=== PATIENT | female | born 1995 | race African-American/Black ===

== ENCOUNTER 2025-04-21 19:42 | Emergency (ER) | payer OTHER, SELFPAY ==
[2025-04-21 19:50] VITALS: BP 148/76; PULSE 119; RESP 18; TEMP 36.7; O2SAT 100
--- NOTE | 2025-04-21 23:10 | ED.PREGNANCY ---
HPI - General Chief complaint: Vaginal Bleeding Stated complaint: 5-6 weeks preg, vag bleeding Time Seen by Provider: 04/21/25 21:54 Source: patient Mode of arrival: ambulatory Limitations: no limitations History of Present Illness HPI Narrative: This is a 29 year old female that presents to the ER for vaginal bleeding in . Reports she is about 5 weeks. Reports she started having spotting, dark brown blood. This has progressed to bright red blood which concerned her and prompted her to be seen. Reports she was seen at [facility] and had an US that showed a gestational sac, but no fetus yet. Review of Systems Review of Systems: All systems reviewed & are unremarkable except as noted in HPI and below Exam Narrative: GENERAL: Well-appearing, well-nourished, and in no acute distress. HEAD: Normocephalic, atraumatic. EYES: EOMI. CHEST: Clear to auscultation. No respiratory distress. No wheezes rales or rhonchi HEART: Regular rate and rhythm. No murmur heard. Normal peripheral pulses. ABDOMEN: Soft, nontender, nondistended, normal active bowel sounds. EXTREMITIES: Normal range of motion. No edema. SKIN: Warm, dry, no rash. NEURO: No focal deficits. Alert and oriented x3. PSYCH: Normal mood and affect Course Vital Signs Vital signs: Vital Signs Temperature 98.1 F 04/21/25 19:50 Pulse Rate 119 H 04/21/25 19:50 Respiratory Rate 18 04/21/25 19:50 Blood Pressure 148/76 H 04/21/25 19:50 Pulse Oximetry 100 04/21/25 19:50 Oxygen Delivery Room Air 04/21/25 19:50 Temperature 98.1 F 04/21/25 19:50 Pulse Rate 95 04/21/25 23:40 Respiratory Rate 20 04/21/25 23:40 Blood Pressure 148/76 H 04/21/25 19:50 Pulse Oximetry 100 04/21/25 23:40 Oxygen Delivery Room Air 04/21/25 19:50 MDM - OB/Uterine Contractions MDM Narrative Medical decision making narrative: Patient presents the emergency department for vaginal bleeding in early . She is afebrile nontoxic appearing. Tachycardic upon arrival, this normalized without intervention. Cbc without leukocytosis. Hemoglobin is 9.5, patient reports known history of anemia. No previous blood work for comparison. Metabolic panel without concerning findings. Patient is A positive. Quantitative beta hCG is 825. Patient's abdomen is soft and nontender, she does report she has had ultrasound which showed an intrauterine with a gestational sac, but no fetus yet. I do not believe an ultrasound tonight will be of much more help. I will order repeat quantitative beta hCG. Will be given follow-up with OB. She was given warnings to return to the ER Differential Diagnosis Differential diagnosis: Likely other (Threatened miscarriage, miscarriage) Lab Data Attestation: I reviewed the patient's lab results. 04/21/25 23:38 04/21/25 23:38 Labs: Lab Results 04/21/25 04/21/25 Range/Units 23:37 23:38 WBC 8.0 (4.5-10.0) K/mm3 RBC 3.94 L (4.2-5.4) M/mm3 Hgb 9.5 L (12.0-15.0) g/dL Hct 31.1 L (37.0-47.0) % MCV 78.9 L (80-100) fl MCH 24.1 L (26-34) pg MCHC 30.5 L (32-36) g/dl RDW 15.7 H (11.5-14.5) % Plt Count 326 (150-375) k/mm3 MPV 9.6 (7.4-10.4) fl Immature Gran % (Auto) 0.4 (0-0.5) % Neut % (Auto) 58.6 (45.5-73.1) % Lymph % (Auto) 28.1 (18.3-44.2) % [place] % (Auto) 10.6 H (2.6-8.5) % Eos % (Auto) 1.9 (0-4.4) % Baso % (Auto) 0.4 (0.2-1.2) % Lymph # (Auto) 2.23 (0.9-3.2) K/mm3 [place] # (Auto) 0.8 H (0.1-0.6) K/mm3 Eos # (Auto) 0.2 (0-0.3) K/mm3 Baso # (Auto) 0.0 (0.0-0.1) K/mm3 Abs Immat Gran (auto) 0.03 (0.00-0.031) K/mm3 Absolute Neuts (auto) 4.7 (1.3-6.7) K/mm3 Absolute Nucleated RBC 0.000 (0.0-0.012) K/mm3 Nucleated RBC % 0.0 (0.0-0.2) % PT 13.1 (11.1-14.7) Seconds INR 1.0 APTT 25.7 (22.3-36.8) Seconds Sodium 136 L (137-145) mmol/L Potassium 3.7 (3.4-5.0) mmol/L Chloride 108 H (98-107) mmol/L Carbon Dioxide 21 L (22-30) mmol/L Anion Gap 7 (4-12) mmol/L BUN 11 (7-17) mg/dL Creatinine 0.91 (0.7-1.0) mg/dL Estim Creat Clear Calc 96 ml/min Estimated GFR > 60 (59 - ) Glucose 103 (65-110) mg/dL Calcium 8.6 (8.4-10.2) mg/dL Total Bilirubin < 0.1 L (0.2-1.3) mg/dL AST 16 (14-36) U/L ALT 13 (6-35) U/L Alkaline Phosphatase 70 (38-126) U/L Total Protein 7.2 (6.3-8.2) g/dL Albumin 3.4 L (3.5-5.1) g/dL Beta HCG, Quant 825.77 mIU/ML Blood Type A Positive Antibody Screen Negative Doses of RhIg Required 0 Critical Care Time Critical Care Time Critical Care Time: No Discharge Plan Discharge Clinical Impression: Vaginal bleeding in Anemia Qualifiers: Anemia type: unspecified type Qualified Code(s): D64.9 - Anemia, unspecified Patient Disposition: Home Condition: Stable Instructions: Threatened Miscarriage (ED), Anemia (ED) Additional Instructions: Return to the ER if you experience fever, chest pain, shortness of breath, abdominal pain with nausea and vomiting, you are unable to keep down liquids or solids, you are soaking through a pad/hour or any other symptoms that are concerning to you Remain well hydrated. Continue vitamin. Pelvic rest, no tampons or sex. I have sent an order electronically for you to have your hormone repeated in 2 days (Tuesday) Follow up with OB Patient Language: Setswana Follow-up/Referrals: PHYSICIAN,SPOOLER OPERATOR AUTOMATIC [Primary Care Provider] - Ashwin Greene MD [Physician] -
[2025-04-21 23:40] VITALS: PULSE 95; RESP 20; O2SAT 100
[2025-04-21 23:44] LABS: Basophils Percent Auto 0.4 % (0.2-1.2); Eosinophils Absolute Auto 0.2 K/mm3 (0-0.3); Eosinophils Percent Auto 1.9 % (0-4.4); Hematocrit 31.1 % (37.0-47.0); Hemoglobin 9.5 g/dL (12.0-15.0); Immature Granulocyte Absolute 0.03 K/mm3 (0.00-0.031); Immature Granulocyte Percent A 0.4 % (0-0.5); Lymphocytes Absolute Auto 2.23 K/mm3 (0.9-3.2); Lymphocytes Percent Auto 28.1 % (18.3-44.2); Mean Corpuscular HGB Conc 30.5 g/dl (32-36); Mean Corpuscular Hemoglobin 24.1 pg (26-34); Mean Corpuscular Volume 78.9 fl (80-100); Mean Platelet Volume 9.6 fl (7.4-10.4); Monocytes Absolute Auto 0.8 K/mm3 (0.1-0.6); Monocytes Percent Auto 10.6 % (2.6-8.5); Neutrophils Absolute Auto 4.7 K/mm3 (1.3-6.7); Neutrophils Percent Auto 58.6 % (45.5-73.1); Platelet Count Result 326 k/mm3 (150-375); Red Blood Count 3.94 M/mm3 (4.2-5.4); Red Cell Distribution Width 15.7 % (11.5-14.5)
[2025-04-21 23:57] LABS: Alanine Aminotransferase 13 U/L (6-35); Albumin Level 3.4 g/dL (3.5-5.1); Alkaline Phosphatase 70 U/L (38-126); Anion Gap 7 mmol/L (4-12); Aspartate Amino Transferase 16 U/L (14-36); Bilirubin,Total < 0.1 mg/dL (0.2-1.3); Blood Urea Nitrogen 11 mg/dL (7-17); Calcium 8.6 mg/dL (8.4-10.2); Carbon Dioxide 21 mmol/L (22-30); Chloride 108 mmol/L (98-107); Estimated CRCL calculation 96 ml/min; Estimated Glomerular Filt Rate > 60; Glucose 103 mg/dL (65-110); Potassium 3.7 mmol/L (3.4-5.0); Sodium 136 mmol/L (137-145); Total Protein 7.2 g/dL (6.3-8.2)
[2025-04-22 00:01] LABS: Prothrombin Time 13.1 Seconds (11.1-14.7)
[2025-04-22 00:02] LABS: Partial Thromboplastin Time 25.7 Seconds (22.3-36.8)
[2025-04-22 00:14] LABS: Beta HCG Quantitative 825.77 mIU/ML
== END 2025-04-22 01:51 | disposition home or self-care (01) ==
PROVIDERS: Emergency Provider Physician Assistant
DX: O20.9 Hemorrhage in early pregnancy, unspecified (principal); O99.011 Anemia complicating pregnancy, first trimester; Z3A.01 Less than 8 weeks gestation of pregnancy
CPT/HCPCS: 36415; 80053; 84702; 85025; 85461; 85610; 85730; 86850; 86900; 86901; 99284

== ENCOUNTER 2025-10-29 11:43 | Emergency (ER) | payer OTHER, SELFPAY ==
[2025-10-29 11:48] VITALS: BP 141/83; PULSE 123; RESP 16; TEMP 35.8; O2SAT 100
[2025-10-29 11:50] VITALS: PULSE 115; RESP 16
[2025-10-29 12:17] LABS: Add Urine Microscopic? NO; Appearance Urine Clear (Clear); Glucose Urine UA Negative (Negative); Leukocyte Esterase Ur Negative LEU/UL (Negative); Nitrate Urine Negative (Negative); Specific Grav Ur 1.020 (1.001-1.035)
--- OUTSIDE RECORDS SUMMARY | 2025-10-29 12:24 | XMS_ITS | Patient Health Record ---
Author Organization [facility] Address [address] [place] [address] Phone [phone] Care Team Providers Care Senior Manufacturing Technician Name Role Phone Sherri Catherine APRN Primary Care Provider Allergies Allergen (clinical drug ingredient) Drug/Non Drug Allergy documented on EMR Reaction Allergy Type Onset Date Status Latex Latex itching Allergy Active Reason For Referral No Information Medications Medication SIG (Take, Route, Frequency, Duration) Notes Start Date End Date Diagnosis (ICD Code) Status Topiramate 100 MG Tablet TAKE 1 TABLET BY MOUTH AT BEDTIME; Duration: 30 Active SEROquel 100 MG Tablet 1 tablet at bedtime Orally Once a day; Duration: 30 day(s) Bipolar affective, manic, severe w/ psych (ICD_10 - F31.2) Active Topiramate 50 MG Tablet TAKE 1 TABLET BY MOUTH TWICE A DAY; Duration: 30 Active Immunizations Status Vaccine Route Administration Date Visit Date Comments Administered COVID-19 Vaccine Pfi zer 2ND Unknown 08/18/2021 COVID-19 Pfizer Vaccine 1ST Unknown 07/28/2021 Social History Tobacco Use: Social History Observation Description Date Details (start date - stop date) Never Smoker NA - NA Sex Observation Social History Observation Description Sex Observation Female Social History Primary Social History Social Info Question Answer Notes Living Arrangement Living Arrangement: Independent Laina ing Is this a supportive environment? No Employment Status Employment Status: Employed [employer] Illicit Substance Usage Illicit Substance Usage: No Alcohol Use Alcohol Use Frequency: Never Tobacco Use: Social Info Question Answer Notes Dont use, Tobacco Use/Smoking Are you a nonsmoker Problems Problem Type SNOMED Code ICD Code Dates Problem Status W/U Status Risk Notes Problem Generalized anxiety disorder (46651933) MAXX (generalized anxiety disorder) (F41.1) Added On:2020 Active confirmed Problem Moderate recurrent major depression (45739289) Moderate episode of recurrent major depressive disorder (F33.1) Added On:2020 Active confirmed Problem Bipolar affective disorder, currently manic, severe, with psychosis (827894421) Bipolar affective, manic, severe w/ psych (F31.2) Added On:2020 Active confirmed Plan Of Treatment No Information Insurance Providers Payer Name Payer Address Payer Phone Subscriber Number Group Number Insured Name Patient Relationship to Insured Coverage Start Date Coverage End Date [facility] Att[facility] Claims Department [address] [place] [address] [phone] [id number] Kelly Ferguson Self - patient is the insured 1 [employer] Att[employer] Claims Department [address] [place] [address] [phone] [id number] Kelly Ferguson Self - patient is the insured 1 Medical (General) History Surgical History Surgery Date(Month/Year) 2017 2019 Hospitalization History Reason Date(Month/Year) 2017 2019
--- OUTSIDE RECORDS SUMMARY | 2025-10-29 12:24 | XMS_ITS | Clinical Summary ---
Author Organization [facility] Address [address] [place] [address] Care Team Providers Care Teacher Of The Emotionally Disturbed Name Role Phone Rolo Lynch MD Primary Care Provider [phone] Trinidad Renee MD Unavailable Allergies Active Allergy Reactions Criticality Noted Date Comments Latex Rash Medium 08/23/2018 Medications budesonide-form oteroL (SYMBICORT) 160-4.5 mcg/actuation inhaler Inhale 2 puffs 2 (two) times a day 03/10/2020 Active topiramate (TOPAMAX) 100 mg tablet Take 100 mg by mouth nightly at bedtime. 04/21/2021 Active QUEtiapine (SEROquel) 100 mg tablet Take 100 mg by mouth nightly Active hydrOXYzine (ATARAX) 25 mg tablet Take 25 mg by mouth 2 (two) times a day Active buPROPion XL (WELLBUTRIN XL) 150 mg 24 hr tablet Take 150 mg by mouth daily Active ARIPiprazole (ABILIFY) 15 mg tablet Take 15 mg by mouth nightly Active norgestimate-et hinyl estradioL (ORTHO-CYCLEN) 0.25-35 mg-mcg per tablet Take 1 tablet by mouth daily 83 tablet 3 12/18/2021 Active benzonatate (TESSALON) 100 mg capsuleIndicati ons:Cough Take 1 capsule (100 mg total) by mouth every 8 (eight) hours 21 capsule 08/26/2022 Active albuterol HFA (PROVENTIL HFA,VENTOLIN HFA,PROAIR HFA) 90 mcg/actuation inhaler Inhale 2 puffs every 4 (four) hours as needed for wheezing 18 g 08/26/2022 Active meloxicam (MOBIC) 7.5 mg tabletIndicatio ns:acute pain Take 1 tablet (7.5 mg total) by mouth every 12 (twelve) hours as needed for pain 15 tablet 09/17/2023 Active orphenadrine ER (NORFLEX) 100 mg 12 hr tabletIndicatio ns:Muscle Spasm Take 1 tablet (100 mg total) by mouth 2 (two) times a day 15 tablet 09/17/2023 Active Hospital, Clinic, or Other Facility Administered Medication Ordered Dose Route Frequency Start Date End Date Status levonorgestreL (MIRENA) 20 mcg/24 hours (5 yrs) 52 mg IUDIndications:Enc ounter for insertion of Mirena IUD intrauterine Continuous (implanted device) 08/22/2020 Active Active Problems Problem Noted Date Diagnosed Date Anemia, antepartum 12/08/2021 Maternal morbid obesity in second trimester, ant epartum 12/08/2021 STD exposure 12/08/2021 Assessment & Plan (12/08/2021 6:28 PM REINFORCING STEEL WORKER): Will notify pt of labs/pathology report as available Advised f/u with Dr. Renee regarding iud as planned Abnormal uterine bleeding 05/06/2021 Overview (05/06/2021): Added automatically from request for surgery [id number] Positive GBS test 06/15/2020 BMI 45.0-49.9, adult 12/03/2019 Diarrhea during 12/03/2019 Gastroesophageal reflux disease without esophagi tis 12/03/2019 H/O section 12/03/2019 Immunizations Immunization Administration Dates Next Due Tdap 09/28/2022 Surgical History Surgery Date Site/Laterality Comments SECTION 10/31/2016 - 10/30/2017 SECTION 10/31/2019 - 10/30/2020 Medical History Medical History Date Comments PONV (postoperative nausea and vomiting) Asthma GERD (gastroesophageal reflux disease) Anemia Obesity Depression Anxiety Dysmenorrhea Covid-19 04/2021 NO HOSPITAL STAY Family History Medical History Relation Name Comments Kidney disease Father Diabetes Maternal Grandfather Diabetes Maternal Grandmother Hyperlipidemia Mother Hypertension Mother Heart disease Paternal Grandfather Relation Name Status Comments Father Maternal Grandfather Maternal Grandmother Mother Paternal Grandfather Social History Tobacco Use Types Packs/Day Years Used Date Smoking Tobacco: Never Smokeless Tobacco: Never Alcohol Use Standard Drinks/Week Comments Yes 0 (1 standard drink = 0.6 oz pur e alcohol) social drinker AUDIT-C Answer Date Recorded Q1: How often do you have a drink containing alc ohol? Monthly or less 12/18/2021 Q2: How many drinks containi ng alcohol do you have on a typical day when you are drinking? 1 or 2 12/18/2021 Q3: How often do you have si x or more drinks on one occasion? Never 12/18/2021 [place] Depression Scale Answer Date Recorded [place] Depression Scale Total 0 08/01/2020 The thought of harming myself has occurred to me . Never 08/01/2020 Personal Safety Answer Date Recorded Have you ever been in or are you currently in a harmful physical or emotional relationship or is someone making you feel afraid or unsafe? Denies 09/17/2023 Comments No Sex and Gender Information Value Date Recorded Sex Assigned at Not on file Legal Sex Female 8:06 PM REINFORCING STEEL WORKER Gender Identity Not on file Sexual Orientation Not on file Obstetrics History Para Term AB IAB SAB Ectopic Multiple Livin g Live Births 2 2 2 2 2 Date Outcome GA Total Labor Labor/2nd/3rd Weight Sex Type Anes PTL Laina A1 A5 Name Clin 06/24 Term 40w 0d 3.175 kg (7 lb) C-S j incis Living 07/08 Term 39w 0d 3.345 kg (7 lb 6 oz) F CS-Uns pec Living Last Filed Vital Signs Vital Sign Reading Time Taken Comments Blood Pressure 132/86 09/17/2023 4:23 PM REINFORCING STEEL WORKER Pulse 96 09/17/2023 4:23 PM REINFORCING STEEL WORKER Temperature 37.1 C (98.8 F) 09/17/2023 2:02 PM REINFORCING STEEL WORKER Respiratory Rate 15 09/17/2023 4:23 PM REINFORCING STEEL WORKER Oxygen Saturation 100% 09/17/2023 4:23 PM REINFORCING STEEL WORKER Inhaled Oxygen Concentration - - Weight 119.6 kg (263 lb 10.7 oz) 09/17/2023 2:02 PM REINFORCING STEEL WORKER Height 154.9 cm (5' 1) 09/17/2023 2:02 PM REINFORCING STEEL WORKER Body Mass Index 49.82 09/17/2023 2:02 PM REINFORCING STEEL WORKER Plan of Treatment Health Maintenance Due Date Last Done Comments Varicella Vaccines (1 of 2 - 13+ 2-dose series) 2008 Hepatitis B Screening 2013 Regular Well Visit/Exam 18-64 2013 Cervical Cancer Screening 12/03/2020 12/03/2019 Depression Screening 08/01/2021 08/01/2020 HPV Vaccines (1 - 3-dose SCDM series) 2022 Covid-19 Vaccine (3 - season) 2025 08/18/2021, 07/28/2021 Influenza Vaccine (#1) 2025 12/03/2019, 2016 DTaP/Tdap/Td Vaccine (5 - Td or Tdap) 09/28/2032 09/28/2022, 05/28/2020, 04/06/2017, Additional history exists Hepatitis C Screening Completed 12/08/2021 Pneumococcal vaccine <65 Aged Out No longer eligible based on patient's age to complete this topic Medical Devices Implanted Type Area Cool Roofing Installer Device Identifier Shelf Expiration Date Model / Serial / Lot Iud N/A: Uterus Procedures Procedure Name Priority Date/Time Associated Diagnosis Comments HEPATITIS PANEL, ACUTE Routine 12/08/2021 2:41 PM REINFORCING STEEL WORKER STD exposure from Last 3 Months or Most Recently Relevant to Health Maintenance Results * Hepatitis panel, acute (12/08/2021 2:41 PM REINFORCING STEEL WORKER) Hep A IgM Nonreactive Nonreactive HUANG Comment: Interpretive Data: If Hep A IgM Ab is reported as Equivocal, a new sample should be drawn in two weeks for testing. Current interpretive data was last revised on 20. Testing performed by: [facility], [address] [facility], [place]., [address] Hep B core IgM Nonreactive Nonreactive HUANG Comment: Interpretive Data If HepB Core IgM Ab is reported as Equivocal, a new sample should be drawn in two weeks for testing. Current interpretive data was last revised on 20. Testing performed by: [facility], [address] [place] [address]., [address] Hep C Ab Nonreactive Nonreactive HUANG Comment: Interpretive Data Nonreactive: Antibodies to HCV not detected. Does NOT exclude the possibility of recent exposure to HCV. Equivocal: Equivocal for HCV antibodies. Supplemental molecular testing will be automatically performed to determine infection status in accordance with current CDC screening recommendations. Reactive: Positive for HCV antibodies. This may represent current or past HCV infection. Supplemental molecular testing will be automatically performed to determine current infection status in accordance with current CDC screening recommendations. Interpretive data was last revised on 2020. Testing performed by: [address] [address] HepBsAg Nonreactive Nonreactive HUANG Comment:Testing performed by : [address] [address] Blood 12/08/2021 2:41 PM REINFORCING STEEL WORKER 12/08/2021 6:39 PM REINFORCING STEEL WORKER [facility] MICROBIOLOGY - GENERAL ORDERABLES Edited Result - Final HUANG [address] Department [place] [address] from Last 3 Months or Most Recently Relevant to Health Maintenance Insurance [facility] Care Teams Teacher Of The Emotionally Disturbed Relationship Specialty Start Date End Date Rolo Lynch MD [address] [place] [address] PCP - General Internal Medicine 05/08/21 Trinidad Renee MD [address] [place] [address] Consulting Physician Obstetrics and Gynecology 12/18/21
--- NOTE | 2025-10-29 13:30 | PC.NURSE ---
Hematology called to addon additional urine tests.
--- NOTE | 2025-10-29 14:03 | ED_ITS ---
HPI - Female Genitourinary General Chief complaint: Urogenital-Female Stated complaint: my twalicia sherna fall off Time Seen by Provider: 10/29/25 12:35 Source: patient and family (mother in law) Mode of arrival: ambulatory Limitations: no limitations History of Present Illness HPI Narrative: female Patient presents with report of genital pain. She went to [facility] thinking it was a UTI but was told it was not. She took motrin which helped. She drank no sugar added cranberry juice but knows she doesn't drink a lot of water. Is not having any issues with standing or walking but experiences pubic pain when sitting, like I got punched. Not on control. Experiences burning/pain with urination but only when the last few drops come out. She states it feels like she is sitting on a hard counter. Has not noticed a rash. Does not currently have a PCP - can't get in to see one/establish with one until december. no vaginal bleeding or discharge. No itching. No back pain. Does not have an ObGyn. Sexually active with 1 male partner in the past month. No fevers or chills. She did have a slight cold recently but otherwise in baseline state of health. History of an STI/STIs >10 years ago but says this feels different. Related Data Allergies Allergy/AdvReac Type Severity Reaction Status Date / Time No Known Allergies Allergy Verified 10/29/25 11:58 [facility] Past Medical History Medical History (Updated 10/30/25 @ 11:19 by Jessica Jane MD) History of sexually transmitted infection before 2014 Obesity, morbid, BMI 40.0-49.9 Vaginal bleeding in Anemia Social History Social History Gender identity (if verbalized by the patient): Female Sexual Orientation (if Verbalized by the Patient): Straight or Heterosexual Exam Narrative: GENERAL: Well-appearing, well-nourished, and in no acute distress. HEAD: Normocephalic, atraumatic. EYES: Non injected, non icteric ENT: Nares clear, no rhinorrhea or epistaxis. Gross auditory acuity intact. NECK: Supple. No meningismus. CHEST: Speaking in full sentences. No respiratory distress. HEART: Tachycardic rate and rhythm. . ABDOMEN: Morbidly obese but Soft, nondistended. No rigidity or guarding. Not peritoneal EXTREMITIES: Normal range of motion. No lower extremity edema. SKIN: Warm, dry, no rash. : Pelvic exam performed with CASSIE Wong present as atm servicer/ssn/ssbn assistant navigator. normal appearing external genitalia without lesions/rash. No discharge/vaginal bleeding. Speculum exam with normal vaginal vault. Physiologic vaginal discharge appreciated near the cervix. NEURO: No focal deficits. Alert and oriented. Answering questions. Following commands. Normal speech without aphasia or dysarthria. PSYCH: Normal mood and affect. Course Vital Signs Vital signs: Vital Signs Temperature 96.5 F L 10/29/25 11:48 Pulse Rate 123 H 10/29/25 11:48 Respiratory Rate 16 10/29/25 11:48 Blood Pressure 141/83 H 10/29/25 11:48 Pulse Oximetry 100 10/29/25 11:48 Temperature 96.5 F L 10/29/25 11:48 Pulse Rate 86 10/29/25 15:59 Respiratory Rate 16 10/29/25 15:59 Blood Pressure 136/82 10/29/25 15:59 Pulse Oximetry 99 10/29/25 15:59 [facility] Narrative Medical decision making narrative: female Patient presents with genital pain, some dysuria with terminal stream. In the emergency department she is afebrile with vital signs notable for hypertension and tachycardia. The tachycardia slightly improved on repeat assessment without interval intervention. test negative. UA without signs of infection. Trichomonas negative as is gonorrhea and chlamydia. Patient given IM ketorolac as well as pyridium. Will be discharged additional pyridium. Advised follow-up with primary care provider. She reports that she is to establish with someone in December but does not currently have 1. Will give the name of 1. Repeat VS have normalized. also provided contact information for oBGyn and provided Rx for OTC analgesic medications. Differential Diagnosis Differential Diagnosis: UTI, STI, trauma/foreign body insertion; vulvovaginitis/candidal infection; urethritis Lab Data [facility] Lab Attestation statement: I personally reviewed the patient's lab results. Labs: Lab Results 10/29/25 10/29/25 Range/Units 12:04 12:05 Urine Color Yellow (Yellow) Urine Appearance Clear (Clear) Urine pH 5.5 (5.0-9.0) Ur Specific [place] 1.020 (1.001-1.035) Urine Protein Negative (Negative) mg/dL Urine Glucose (UA) Negative (Negative) mg/dL Urine Ketones Negative (Negative) mg/dL Ur Blood (Man) Negative (Negative) Urine Nitrate Negative (Negative) Urine Bilirubin Negative (Negative) Urine Urobilinogen 1.0 (<2.0) mg/dL Leukocyte Esterase Rfl Negative (Negative) BILLY/UL Urine Test Negative C. trachomatis (PCR) Not detected (NOT DETECTE) N. gonorrhoeae (PCR) Not detected (NOT DETECTE) T. vaginalis (PCR) Not detected (NOT DETECTE) Discharge Plan Discharge Clinical Impression: Urethritis, Dysuria Patient Disposition: Home Condition: Stable Instructions: Antibiotic Form, Dysuria (ED), Urethritis (ED) Additional Instructions: Pyridium/phenazopyridine can help with the pain you are experiencing. It can discolor your urine and tears (turn them orange). Do not wear contact lenses while taking this medication. Follow-up with primary care physician. Because you do not currently have 1, the name of a doctor is listed below. Your urine did not show a urinary tract infection and you tested negative for chlamydia, gonorrhea, and Trichomonas. If you are in need of an operations section manager, the name of 1 is listed below. Acetaminophen/Tylenol (maximum 4000 mg per day) is safe to take with NSAIDs (ibuprofen/Motrin) for pain relief. Patient Language: Azeri Prescriptions: New phenazopyridine [Pyridium] 100 mg tablet 100 mg PO TID PRN (Reason: pain) 2 Days Qty: 5 0RF Rx Instructions: received first dose in ED 12/30 acetaminophen 500 mg capsule 1,000 mg PO Q6H PRN (Reason: pain) Qty: 30 0RF ibuprofen 200 mg capsule 600 mg PO Q8H PRN (Reason: fever or pain) Qty: 30 0RF Follow-up/Referrals: Dhruv Michel MD [Physician, OUTBOUND SALES EXECUTIVE] PHYSICIAN,GLASS [employer]MING CREW MEMBER [Primary Care Provider, Internal Medicine] Tanner Roca MD [Physician, Family Practice] Stand Alone Forms: Work/School Release IP Time of Disposition: 15:07
[2025-10-29 14:07] LABS: Pregnancy On Board Control Positive
[2025-10-29 14:38] LABS: Trichomonas Vag PCR NOT DETECTED (NOT DETECTE)
[2025-10-29 14:44] VITALS: BP 138/76; PULSE 86; RESP 16; O2SAT 98
[2025-10-29] MEDS: PHENAZOPYRIDINE HCL 100 MG TABLET PO (15:11)
[2025-10-29] MEDS: KETOROLAC 30 MG/ML VIAL (*BKC) IM (15:11)
[2025-10-29 15:59] VITALS: BP 136/82; PULSE 86; RESP 16; O2SAT 99
== END 2025-10-29 16:00 | disposition home or self-care (01) ==
PROVIDERS: Emergency Medicine; Emergency Provider Student in an Organized Health Care Education/Training Program
DX: N34.2 Other urethritis (principal); R30.0 Dysuria; E66.01 Morbid (severe) obesity due to excess calories; Z68.42 Body mass index [BMI] 45.0-49.9, adult; Z86.2 Personal history of diseases of the blood and blood-forming organs and certain disorders involving the immune mechanism
CPT/HCPCS: 81003; 81025; 87491; 87591; 87661; 96372; 99283; 99284; A9270; J1885